=== PATIENT | female | born 1980 | race Caucasian/White ===

== ENCOUNTER 2018-09-01 15:16 | Inpatient (IN) | payer MEDICAID ==
[2018-09-01] MEDS: LR 1,000 ML IV (16:49)
[2018-09-01] MEDS: LACTATED RINGER'S 1000 ML IV (16:49)
[2018-09-01 17:03] LABS: BASO % 0.3 % (0.0-1.0); EOS # 0.1 10^3/uL (0.0-0.50); EOS % 0.8 % (0.0-3.0); HEMATOCRIT 35.6 % (36.0-47.0); IMMATURE GRANULOCYTE % 0.8 % (0-3.0); LYMPH % 16.5 % (24.0-44.0); MEAN CORPUSCULAR HEMOGLOBIN 30.2 pg (27.0-33.0); MEAN CORPUSCULAR HGB CONC 33.7 g/dl (32.0-36.5); MEAN CORPUSCULAR VOLUME 89.4 fl (80.0-96.0); MONO # 0.6 10^3/uL (0.0-0.8); MONO % 4.8 % (0.0-5.0); NEUTROPHILS # 9.2 10^3/uL (1.8-7.7); NEUTROPHILS % 76.8 % (36.0-66.0); PLATELET COUNT, AUTOMATED 201 10^3/uL (150-450); RED BLOOD COUNT 3.98 10^6/uL (4.00-5.40); RED CELL DISTRIBUTION WIDTH 13.1 % (11.5-14.5); WHITE BLOOD COUNT 11.9 10^3/uL (4.0-10.0)
[2018-09-01] MEDS ORDERED: FENTANYL 2MCG/ML ROPIVACAINE 0.2% IN 0.9% NACL 200ML IVBAG As Ordered (20:31)
[2018-09-01] MEDS ORDERED: EPIDURAL/PCA KEYS XX (20:39)
[2018-09-01] MEDS ORDERED: diphenhydrAMINE INJ 50MG/ML VIAL (J1200) IV (20:39)
[2018-09-01] MEDS ORDERED: EPIDURAL COMMENT XX (20:39)
[2018-09-01] MEDS ORDERED: LACTATED RINGER'S 1000 ML IV (20:39)
[2018-09-01] MEDS ORDERED: ONDANSETRON 4MG/2ML VIAL (J2405) IV (20:39)
[2018-09-01] MEDS ORDERED: ePHEDrine SULFATE 25 MG/5 ML(5MG/ML) SYRINGE IV (20:39)
[2018-09-01] MEDS ORDERED: FENTANYL/ROPIVACAINE/NACL BAG 200 ML EPIDURAL (20:39)
[2018-09-01] MEDS ORDERED: NALOXONE INJ 0.4 MG/1 ML VIAL (J2310) IV (20:39)
[2018-09-01] MEDS ORDERED: REFRIGERATOR IV KEYS XX (20:39)
[2018-09-01] MEDS ORDERED: OXYTOCIN 30 UNITS IN 0.9% NaCl 500ML IV BAG (J2590) As Ordered (23:30)
[2018-09-02 02:20] LABS: CORD GAS ABE V -4.4; CORD GAS HCO3 V 21.2 MEQ/L; CORD GAS PCO2 V 40.8 mmHg; CORD GAS PH V 7.333 UNITS; CORD GAS PO2 V 31.4 mmHg; CORD GAS SBC V 20.2 MEQ/L; CORD GAS TCO2 V 22.4 MEQ/L
[2018-09-02 02:22] LABS: CORD GAS ABE A -5.6; CORD GAS HCO3 A 20.4 MEQ/L; CORD GAS PCO2 A 41.7 mmHg; CORD GAS PH A 7.307 UNITS; CORD GAS SBC A 18.8 MEQ/L; CORD GAS TCO2 A 21.7 MEQ/L
[2018-09-02] MEDS: OXYTOCIN DRIP 30 UNITS in APPROPRIATE DILUENT 1 EA IV (02:43)
[2018-09-02] MEDS ORDERED: MEASLES,MUMPS,RUBELLA VACCINE INJ (MMR-II) (90707) SC (02:45)
[2018-09-02] MEDS ORDERED: ONDANSETRON 4MG/2ML VIAL (J2405) IV (02:45)
[2018-09-02] MEDS ORDERED: RHOGAM 300 MCG (1500 IU) INJ (J2790) IM (02:45)
[2018-09-02] MEDS ORDERED: MOM 30ML SUSPENSION UDC PO (02:45)
[2018-09-02] MEDS ORDERED: METHYLERGONOVINE MALEATE 0.2 MG TAB PO (02:45)
[2018-09-02] MEDS: IBUPROFEN 800 MG TAB PO ×3 (03:57→20:48)
[2018-09-02] MEDS: ACETAMINOPHEN 500 MG TAB PO ×2 (07:25→15:21)
[2018-09-02] MEDS: DOCUSATE SODIUM 100 MG CAP PO ×2 (09:00→20:48)
[2018-09-02] MEDS: DIBUCAINE 1% OINTMENT 30GM TOP (09:08)
[2018-09-02] MEDS: PRENATAL VITAMINS CHEWABLE TABLET PO (09:09)
[2018-09-02] MEDS: ANUSOL HC CREAM 30GM TOP (21:12)
[2018-09-03] MEDS: ACETAMINOPHEN 500 MG TAB PO ×2 (00:25→08:44)
[2018-09-03] MEDS: IBUPROFEN 800 MG TAB PO (05:27)
[2018-09-03] MEDS: PRENATAL VITAMINS CHEWABLE TABLET PO (08:43)
[2018-09-03] MEDS: DOCUSATE SODIUM 100 MG CAP PO (08:44)
[2018-09-03] MEDS: INFLUENZA QUADRIVALENT PF VACCINE 0.5ML SYRINGE (90686) IM (08:56)
[2018-09-03] MEDS ORDERED: INFLUENZA QUADRIVALENT PF VACCINE 0.5ML SYRINGE (90686) IM (09:00)
== END 2018-09-03 16:10 | disposition home or self-care (01) | DRG 560 ==
LOC: M LDI 15:16 → M OBS 09-02 04:27
PROVIDERS: Obstetrics & Gynecology
PROC: 10E0XZZ Delivery of Products of Conception, External Approach (ICD-10-PCS; principal; 2018-09-02)
PROC: 0HQ9XZZ Repair Perineum Skin, External Approach (ICD-10-PCS; 2018-09-02)
DX: O48.0 Post-term pregnancy (principal); O34.211 Maternal care for low transverse scar from previous cesarean delivery; Z37.0 Single live birth; Z3A.40 40 weeks gestation of pregnancy; O70.1 Second degree perineal laceration during delivery; O36.60X0 Maternal care for excessive fetal growth, unspecified trimester, not applicable or unspecified

== ENCOUNTER → 2020-09-04 | Outpatient (CLI) | payer BC ==
[~2020-09-04] MED LIST: IBUP-1114 PO; MAPA500T2 PO; PERC5TAB12 PO; PRENTAB9 PO; ZANT150T15 PO
== END ==
LOC: M LABSMTC 10:38
PROVIDERS: ATTEND Anesthesiology
DX: Z01.812 Encounter for preprocedural laboratory examination (principal); Z20.828 Contact with and (suspected) exposure to other viral communicable diseases
CPT/HCPCS: C9803; U0002

== ENCOUNTER 2020-09-05 04:43 | Inpatient (IN) | payer OTHER ==
[2020-09-05] VITALS (9 sets, daily range): BP systolic 102–118; BP diastolic 52–69
[~2020-09-05] VITALS: Ht 162.6 cm; Wt 86.3 kg
[~2020-09-05 04:43] MED LIST changes: -PERC5TAB12 PO
[2020-09-05] MEDS ORDERED: LR 1,000 ML IV SCH ×2 (04:53→10:00)
[2020-09-05] MEDS ORDERED: LACTATED RINGER'S 1000 ML IV STA (04:53)
[2020-09-05] MEDS ORDERED: ceFAZolin SOD 2 GM in IV 1 EA IV ONE (05:00)
[2020-09-05] MEDS ORDERED: BICITRA 30ML SOLN UDC PO ONE (05:00)
[2020-09-05 05:41] LABS: HEMATOCRIT 38.3 % (36.0-47.0); MEAN CORPUSCULAR HEMOGLOBIN 30.9 pg (27.0-33.0); MEAN CORPUSCULAR HGB CONC 33.9 g/dl (32.0-36.5); PLATELET COUNT, AUTOMATED 205 10^3/uL (150-450); RED BLOOD COUNT 4.21 10^6/uL (4.00-5.40); WHITE BLOOD COUNT 15.8 10^3/uL (4.0-10.0)
[2020-09-05] MEDS ORDERED: OXYTOCIN DRIP 30 UNITS in IV 1 EA IV SCH (08:16)
[2020-09-05] MEDS ORDERED: OXYTOCIN INJ 10 UNITS/ML VIAL (J2590) As Ordered ONE (08:29)
[2020-09-05] MEDS ORDERED: MOM 30ML SUSPENSION UDC PO PRN (08:30)
[2020-09-05] MEDS ORDERED: RHOGAM 300 MCG (1500 IU) INJ (J2790) IM SCH (08:30)
[2020-09-05] MEDS ORDERED: MEASLES,MUMPS,RUBELLA VACCINE INJ (MMR-II) (90707) SC SCH (08:30)
[2020-09-05] MEDS ORDERED: ONDANSETRON 4 MG TAB PO PRN (08:30)
[2020-09-05] MEDS ORDERED: MORPHINE PRES-FREE INJ 10 MG/10 ML VIAL (J2274) As Ordered ONE (08:35)
[2020-09-05] MEDS ORDERED: ONDANSETRON 4MG/2ML VIAL As Ordered ONE (08:57)
[2020-09-05] MEDS ORDERED: dexameTHASONE 4 MG/ML 1ML VIAL (J1100 PER 1MG) As Ordered ONE (08:57)
[2020-09-05] MEDS ORDERED: KETOROLAC 60MG 2ML VIAL As Ordered ONE ×2 (08:57→09:19)
[2020-09-05 09:19] LABS: CORD GAS ABE V -1.9; CORD GAS HCO3 V 22.5 MEQ/L; CORD GAS PCO2 V 37.2 mmHg; CORD GAS PH V 7.399 UNITS; CORD GAS PO2 V 53.2 mmHg; CORD GAS SBC V 22.8 MEQ/L; CORD GAS TCO2 V 23.6 MEQ/L
[2020-09-05 09:22] LABS: CORD GAS ABE A -1.1; CORD GAS HCO3 A 25.4 MEQ/L; CORD GAS O2 SAT A 43.4 %; CORD GAS PCO2 A 49.2 mmHg; CORD GAS PH A 7.331 UNITS; CORD GAS PO2 A 18.4 mmHg; CORD GAS SBC A 22.3 MEQ/L; CORD GAS TCO2 A 26.9 MEQ/L
[2020-09-05] MEDS ORDERED: fentaNYL 100 MCG/2 ML INJECTION (J3010) IV PRN (10:00)
[2020-09-05] MEDS ORDERED: PERCOCET 5MG/325MG TAB PO PRN (10:00)
[2020-09-05] MEDS ORDERED: ONDANSETRON 4MG/2ML VIAL IV PRN ×2 (10:00)
[2020-09-05] MEDS ORDERED: NALOXONE INJ 0.4MG/1ML VIAL (J2310 PER 1MG) IV PRN ×2 (10:00)
[2020-09-05] MEDS ORDERED: METOCLOPRAMIDE INJ 10MG/2ML VIAL (J2765 PER 1) IV PRN ×2 (10:00)
[2020-09-05] MEDS ORDERED: NALBUPHINE HCL 10 MG/ML AMP (J2300) IV PRN (10:00)
[2020-09-05] MEDS ORDERED: diphenhydrAMINE 50MG/ML VIAL (J1200) IV PRN (10:00)
[2020-09-05] MEDS ORDERED: MEPERIDINE INJ 25 MG/ML VIAL (J2175) IV PRN (10:00)
[2020-09-05] MEDS ORDERED: OXYTOCIN 30 UNITS IN 0.9% NaCl 500ML IV BAG (J2590) As Ordered ONE (10:05)
[2020-09-05] MEDS: PERCOCET 5MG/325MG TAB PO PRN (12:09)
[2020-09-05] MEDS: DOCUSATE SODIUM 100 MG CAP PO SCH ×2 (12:30→20:27)
[2020-09-05] MEDS: PRENATAL VITAMINS CHEWABLE TABLET PO SCH (12:30)
[2020-09-05] MEDS: KETOROLAC 30 MG/ML 1ML VIAL IV SCH ×2 (14:47→20:27)
[2020-09-06 02:09] VITALS: BP 97/51
[2020-09-06] MEDS: KETOROLAC 30 MG/ML 1ML VIAL IV SCH (02:45)
[2020-09-06 05:54] VITALS: BP 116/58
[2020-09-06 07:13] LABS: HEMATOCRIT 31.1 % (36.0-47.0); MEAN CORPUSCULAR HEMOGLOBIN 30.5 pg (27.0-33.0); MEAN CORPUSCULAR HGB CONC 32.8 g/dl (32.0-36.5); MEAN CORPUSCULAR VOLUME 93.1 fl (80.0-96.0); PLATELET COUNT, AUTOMATED 164 10^3/uL (150-450); RED BLOOD COUNT 3.34 10^6/uL (4.00-5.40); WHITE BLOOD COUNT 13.3 10^3/uL (4.0-10.0)
[2020-09-06 07:24] LABS: HEMOGLOBIN 10.2 g/dl (12.0-15.5)
[2020-09-06] MEDS: PRENATAL VITAMINS CHEWABLE TABLET PO SCH (09:09)
[2020-09-06] MEDS: DOCUSATE SODIUM 100 MG CAP PO SCH ×2 (09:09→21:03)
[2020-09-06 10:00] VITALS: BP 97/54
[2020-09-06] MEDS: IBUPROFEN 800 MG TAB PO SCH ×2 (10:17→18:16)
[2020-09-06] MEDS: PERCOCET 5MG/325MG TAB PO PRN ×3 (11:56→21:03)
[2020-09-06 18:01] VITALS: BP 110/59
[2020-09-06 22:00] VITALS: BP 111/59
[2020-09-07] MEDS: PERCOCET 5MG/325MG TAB PO PRN ×3 (01:02→09:14)
[2020-09-07 02:00] VITALS: BP 101/55
[2020-09-07] MEDS: IBUPROFEN 800 MG TAB PO SCH ×2 (02:57→12:28)
[2020-09-07 06:00] VITALS: BP 95/50
[2020-09-07] MEDS: PRENATAL VITAMINS CHEWABLE TABLET PO SCH (08:10)
[2020-09-07] MEDS: DOCUSATE SODIUM 100 MG CAP PO SCH (08:10)
[2020-09-07] MEDS ORDERED: PERC5TAB12 PO (08:22)
--- NOTE | 2020-09-07 08:27 | OBDS ---
[facility] Obstetrical Discharge Sum. Obstetrical Discharge Summary Event Coordinator/Provider: Brandt Conner DO Date: Sep 07, 2020 : 4 Term: 3 Pre-term: 0 Abortions: 1 Livin VDRL: Non-Reactive Rh: Negative Rubella: Immune Anesthesia: Regional Anesthesia A/P, Post Course List any complications Admission diagnosis:Post term with history of prior c/s for elective repeat c/s .Desires permanent tubal sterilization Discharge diagnosis: Same Condition at Discharge: [stable] Discharge Instructions: [nothing in the vagina for 6 weeks)] Activity: [ tolerated] Diet: [regular] Medications: [see list] Follow-up: [2 weeks] Other: Brandt Conner DO Sep 07, 2020 08:27
[2020-09-07] MEDS ORDERED: PERCOCET 5MG/325MG TAB As Ordered ONE (09:13)
[2020-09-07] MEDS ORDERED: IBUPROFEN 800 MG TAB As Ordered ONE (12:25)
--- NOTE | 2020-09-09 08:14 | RO ---
DATE OF OPERATION: 09/05/2020 No is a 39-year-old female, 5, para 3-0-1-3, who was admitted at 40-3/7 weeks gestation with a history of prior section for an elective repeat section. Patient also desires permanent tubal sterilization. After extensive counseling, a decision was made to proceed with the repeat section. PREOPERATIVE DIAGNOSES: 1. Term for elective repeat section. 2. Desires bilateral tubal ligation. POSTOPERATIVE DIAGNOSES: 1. Term for elective repeat section. 2. Desires bilateral tubal ligation. 3. Polyhydramnios. PROCEDURES: 1. Repeat section. 2. Bilateral salpingectomies. 3. Revision of old scar. ANESTHESIA: Spinal. SURGEON: Dr. Conner RESIDENT DOCTOR: Dr. Charles COMPLICATIONS: None. ESTIMATED BLOOD LOSS: 600 mL. FINDINGS: A live male infant in occiput transverse position. scores 9 and 9. weight 9 pounds 3 ounces. Placenta removed manually. Bilateral ovaries and tubes appeared within normal limits. PROCEDURE DESCRIPTION: After obtaining informed consent, patient was taken to the operating room, where spinal anesthetic was found to be adequate. She was then draped and prepped in usual sterile fashion in the supine position. At this point, an elliptical incision was made over her old scar with the help of Dr. Charels. The old scar was removed. The incision was carried down to the fascia. Fascia was incised in midline fashion and carried through laterally. Superior aspect of the fascia was then grasped with two Kannan clamps, tented off, and dissected off the rectus muscles sharply. The inferior aspect was dissected off in a similar fashion. Rectus muscles in midline fashion. Peritoneum identified. Peritoneal cavity entered bluntly. Superior and inferior dissection of the peritoneum was then done with good visualization of the bladder. At this point, a Mobius skin retractor was placed. A lower transverse uterine incision was made. was delivered in atraumatic fashion. Mouth bulb suctioned. Cord doubly clamped and cut, and handed was handed over to the awaiting warmer. Cord blood and cord gas were sent. Placenta removed manually. Uterus cleared of all clot and debris. The uterine incision was then repaired in two separate layers of 0 Vicryl sutures. At this point, attention was turned to the fallopian tubes, where the fimbriated ends were identified. Two Kellys were placed at the fimbriated end as well as the cornual end. Using the Bovie the entire tube was removed, and the mesosalpinx was then sutured ligated using 3-0 chromic suture. The opposite was done in similar fashion. Both tubes were sent to pathology for final diagnosis. Pelvis was copiously irrigated with normal saline and suctioned out. Attention turned to the peritoneum, which was closed in a running fashion using 2-0 Vicryl suture. Fascia closed in two separate segments of 0 Vicryl sutures. All superficial bleeders were coagulated, and the skin was reapproximated in a subcuticular fashion using 3-0 Vicryl on a Guicho. Steri- Strips placed. The patient tolerated the procedure well. She was then transferred to the recovery room in stable condition. KAREY
== END 2020-09-07 13:25 | disposition home or self-care (01) | DRG 540 ==
LOC: M LDI 04:43 → M OBS 11:05
PROVIDERS: ADMIT Obstetrics & Gynecology; ATTEND Obstetrics & Gynecology
PROC: 0UT70ZZ Resection of Bilateral Fallopian Tubes, Open Approach (ICD-10-PCS; 2020-09-05)
PROC: 10D00Z1 Extraction of Products of Conception, Low, Open Approach (ICD-10-PCS; principal; 2020-09-05 07:30)
DX: O34.211 Maternal care for low transverse scar from previous cesarean delivery (principal); Z3A.40 40 weeks gestation of pregnancy; O40.3XX0 Polyhydramnios, third trimester, not applicable or unspecified; Z37.0 Single live birth; Z30.2 Encounter for sterilization